=== PATIENT | male | born 1965 | race Caucasian/White ===

== ENCOUNTER 2020-01-02 13:08 | Inpatient (IN) | payer MEDICARE, MEDICAID ==
[~2020-01-02] VITALS: Ht 182.9 cm; Wt 295.4 kg
[2020-01-02 14:33] LABS: BASOPHILS # (AUTO) 0.1 X10'3 (0-0.2); BASOPHILS % (AUTO) 0.4 % (0-1); EOSINOPHILS # (AUTO) 0.1 X10'3 (0-0.9); EOSINOPHILS % (AUTO) 0.7 % (0-6); HEMATOCRIT 35.7 % (42.0-52.0); HEMOGLOBIN 11.7 g/dl (14.0-17.9); LYMPHOCYTES # (AUTO) 1.3 X10'3 (1.1-4.8); LYMPHOCYTES % (AUTO) 8.6 % (21-51); MEAN CORPUSCULAR HGB CONC 32.6 g/dL (33.0-36.5); MEAN CORPUSCULAR VOLUME 85.7 FL (78-98); MONOCYTES # (AUTO) 1.3 X10'3 (0-0.9); MONOCYTES % (AUTO) 8.5 % (2-12); NEUTROPHILS # (AUTO) 12.1 X10'3 (1.8-7.7); NEUTROPHILS % (AUTO) 81.8 % (42-75); PLATELET COUNT 431 X10'3 (140-440); RED BLOOD COUNT 4.17 X10'6 (4.70-6.10); RED CELL DISTRIBUTION WIDTH 17.5 % (11.5-14.5); WHITE BLOOD COUNT 14.8 X10'3 (4.5-11.0)
[2020-01-02 14:52] LABS: ALBUMIN 3.2 G/DL (3.4-5.0); ANION GAP 8 (8-16); BLOOD UREA NITROGEN 102 MG/DL (7-18); BUN/CREATININE RATIO 34.1 (5.4-32.0); CALCIUM 9.2 MG/DL (8.5-10.1); CHLORIDE 95 MMOL/L (99-107); CREATININE 2.99 MG/DL (0.60-1.10); GLUCOSE 150 MG/DL (70-104); MAGNESIUM 2.7 MG/DL (1.5-2.4); POTASSIUM 4.9 MMOL/L (3.5-5.1); SODIUM 133 MMOL/L (135-145); TOTAL CARBON DIOXIDE 29.9 MMOL/L (24-32); TROPONIN I < 0.04 NG/ML (0.0-0.05); eGFR 22 ML/MIN
[2020-01-02] MEDS ORDERED: bumetanide 0.25mg/ml 4ml vial IV SCH (15:05)
[2020-01-02] MEDS ORDERED: DOCU-21 PO (15:42)
[2020-01-02] MEDS ORDERED: ASPI-1265 PO (15:42)
[2020-01-02] MEDS ORDERED: MELA10TA2 PO (15:42)
[2020-01-02] MEDS ORDERED: UBID200C18 PO (15:42)
[2020-01-02] MEDS ORDERED: ASCO-139 PO (15:42)
[2020-01-02] MEDS ORDERED: MULT-1085 PO (15:42)
[2020-01-02] MEDS ORDERED: ALLO300T2 PO (15:44)
[2020-01-02] MEDS ORDERED: ATOR20TA66 PO (15:44)
[2020-01-02] MEDS ORDERED: AMLO10TA PO (15:44)
[2020-01-02] MEDS ORDERED: GABA-532 PO ×2 (15:47)
[2020-01-02] MEDS ORDERED: CLON0.1T PO (15:47)
[2020-01-02] MEDS ORDERED: DULO-31 PO (15:49)
[2020-01-02] MEDS ORDERED: SITA100T11 PO (15:49)
[2020-01-02] MEDS ORDERED: BUME2TAB7 PO (15:49)
[2020-01-02] MEDS ORDERED: PREG150C PO (15:49)
[2020-01-02] MEDS ORDERED: POTA-82 PO (15:50)
[2020-01-02] MEDS ORDERED: CARV3.122 PO (15:50)
[2020-01-02] MEDS ORDERED: SPIR25TA5 PO (15:50)
[2020-01-02] MEDS ORDERED: GLIM4TAB7 PO (15:52)
[2020-01-02] MEDS ORDERED: HYDR100T27 PO (15:52)
[2020-01-02] MEDS ORDERED: LOSA100T57 PO (15:56)
[2020-01-02] MEDS ORDERED: INSU500I SQ (16:07)
[2020-01-02] MEDS ORDERED: INSU100V41 SQ (16:07)
[2020-01-02] MEDS ORDERED: OMEP20TA5 PO (16:08)
[2020-01-02] MEDS ORDERED: CHLO25TA10 PO (16:13)
[2020-01-02] MEDS ORDERED: ISOS120T13 PO (16:14)
[2020-01-02] MEDS ORDERED: TEST75GE10 TOP (16:46)
[2020-01-02] MEDS ORDERED: CYAN10007 IM (16:46)
[2020-01-02 16:47] LABS: TROPONIN I < 0.04 NG/ML (0.0-0.05)
[2020-01-02 17:01] LABS: ABG BASE EXCESS -0.5 mmol/L (-2.0-3.0); ABG HCO3 24.4 mmol/L (22.0-26.0); ABG OXYGEN SATURATION 94.1 % (95-98); ABG PCO2 (T) 40.9 mmHg (35.0-45.0); ABG PH (T) 7.393 (7.350-7.450); ABG PO2 (T) 74.8 mmHg (83-108); ALLEN'S TEST POSITIVE; FCOHb 0.5 % (0.5-1.5); FLOW 14 L/min; FMetHb 0.3 % (0.3-1.12); FO2Hb 93.3 % (94-100); TOTAL HEMOGLOBIN 12.4 G/dl (14.0-17.9)
[2020-01-02] MEDS ORDERED: magnesium 2GM in 50ml NS 50 ML IV PRN (18:45)
[2020-01-02] MEDS ORDERED: morphine 2 MG/ML inj. syringe IV PRN (18:45)
[2020-01-02] MEDS ORDERED: potassium Cl 20 mEq SR tablet PO PRN ×2 (18:45)
[2020-01-02] MEDS ORDERED: Neutra Phos packet PO PRN (18:45)
[2020-01-02] MEDS ORDERED: sodium phosphate inj. 30 MMOL in dextrose 5%-water 250 ML IV PRN (18:45)
[2020-01-02] MEDS ORDERED: acetaminophen 325mg tablet PO PRN ×2 (18:45)
[2020-01-02] MEDS ORDERED: ipratropium/albuterol 3ml nebule NEB PRN (18:45)
[2020-01-02] MEDS ORDERED: ondansetron/PF 4mg/2ml inj IV PRN (18:45)
[2020-01-02] MEDS ORDERED: magnesium Cl slow-release 64mg tablet PO PRN (18:45)
[2020-01-02] MEDS ORDERED: sodium phosphate inj. 15 MMOL in dextrose 5%-water 250 ML IV PRN (18:45)
[2020-01-02] MEDS ORDERED: magnesium 4gm in 100ml NS 100 ML IV PRN (18:45)
[2020-01-02] MEDS ORDERED: potassium CL 10mEq/100ml bag 100 ML IV PRN (18:45)
--- NOTE | 2020-01-02 19:35 | NUR ---
Received report from Chayito DAMIAN and assumed pt care.
[2020-01-02 19:36] LABS: LDL CHOLESTEROL 68 MG/DL (50-100)
[2020-01-02] MEDS: enoxaparin 100mg/ml syringe SUBCUT SCH (19:45)
[2020-01-02] MEDS: DOBUTamine-DoBUTrex 500mg/D5W 250 ML IV SCH (19:45)
[2020-01-02] MEDS ORDERED: docusate sod 100mg capsule PO SCH (20:00)
--- NOTE | 2020-01-02 20:08 | NUR ---
Per November [employer], okay to start dobutamine in piv.
[2020-01-02] MEDS: ascorbic acid 500mg tablet PO SCH (20:47)
[2020-01-02] MEDS: docusate sod 100mg capsule PO SCH (20:48)
[2020-01-02] MEDS: cloNIDine 0.1 mg tablet PO SCH (20:48)
[2020-01-02] MEDS: pregabalin 75mg capsule PO SCH (20:48)
--- NOTE | 2020-01-02 20:58 | NUR ---
HS meds given. Missing cymbalta. Coming from pharmacy.
[2020-01-02] MEDS ORDERED: Melatonin 3mg tablet PO SCH (21:00)
[2020-01-02] MEDS ORDERED: atorvastatin 20mg tablet PO SCH (21:00)
[2020-01-02] MEDS: duloxetine 30mg CAPSULE.DR PO SCH (22:35)
--- NOTE | 2020-01-02 22:35 | NUR ---
Late entry: Patient here from ER in room CICU 2008. I have received report from Keyla DAMIAN and had the opportunity to ask questions and assume patient care. Placed on Bipap upon transferring onto Marcelo bed.
[2020-01-02 23:00] VITALS: BP 67/35
[2020-01-02] MEDS ORDERED: albumin (Human) 5% 250ml 250 ML IV ONE ×3 (23:17→23:25)
--- NOTE | 2020-01-02 23:17 | NUR ---
Pt hypotensive, 500mL bolus of Ns given. No change, J Prince notified. Orders received.
[2020-01-02] MEDS ORDERED: methylPREDNISolone sod succ 125mg/2ml vial IV ONE (23:25)
[2020-01-02] MEDS ORDERED: cefTAZidime inj. 1 GM in normal saline 100ml IV soln 100 ML IV SCH (23:25)
[2020-01-03] VITALS (19 sets, daily range): BP systolic 62–104; BP diastolic 29–64
--- NOTE | 2020-01-03 00:15 | NUR ---
20G PIV placed guided by US in L forearm. Flushes, good blood return. Dobutamine infusing in R FA PIV.
[2020-01-03] MEDS: normal saline 1000ml 1,000 ML IV SCH ×3 (00:21→13:57)
[2020-01-03 00:31] LABS: BASOPHILS # (AUTO) 0.1 X10'3 (0-0.2); BASOPHILS % (AUTO) 0.4 % (0-1); EOSINOPHILS # (AUTO) 0.1 X10'3 (0-0.9); EOSINOPHILS % (AUTO) 0.5 % (0-6); HEMOGLOBIN 10.5 g/dl (14.0-17.9); LYMPHOCYTES # (AUTO) 1.7 X10'3 (1.1-4.8); MEAN CORPUSCULAR HEMOGLOBIN 28.3 PG (27.0-31.0); MEAN CORPUSCULAR HGB CONC 32.9 g/dL (33.0-36.5); MEAN CORPUSCULAR VOLUME 85.9 FL (78-98); MONOCYTES # (AUTO) 1.1 X10'3 (0-0.9); MONOCYTES % (AUTO) 8.2 % (2-12); NEUTROPHILS # (AUTO) 10.8 X10'3 (1.8-7.7); NEUTROPHILS % (AUTO) 78.9 % (42-75); PLATELET COUNT 374 X10'3 (140-440); RED BLOOD COUNT 3.72 X10'6 (4.70-6.10); RED CELL DISTRIBUTION WIDTH 17.4 % (11.5-14.5); WHITE BLOOD COUNT 13.8 X10'3 (4.5-11.0)
[2020-01-03 00:46] LABS: ALANINE AMINOTRANSFERASE 55 U/L (12-78); ALBUMIN 2.9 G/DL (3.4-5.0); ALBUMIN/GLOBULIN RATIO 0.7 (1.1-1.5); ALKALINE PHOSPHATASE 190 IU/L (46-116); ANION GAP 11 (8-16); ASPARTATE AMINO TRANSFERASE 42 U/L (10-37); BILIRUBIN,TOTAL 0.5 MG/DL (0.1-1.0); BLOOD UREA NITROGEN 107 MG/DL (7-18); BUN/CREATININE RATIO 31.4 (5.4-32.0); CALCIUM 8.7 MG/DL (8.5-10.1); CHLORIDE 96 MMOL/L (99-107); CREATININE 3.41 MG/DL (0.60-1.10); GLUCOSE 169 MG/DL (70-104); MAGNESIUM 2.6 MG/DL (1.5-2.4); PHOSPHORUS 6.5 MG/DL (2.3-4.5); POTASSIUM 4.9 MMOL/L (3.5-5.1); SODIUM 133 MMOL/L (135-145); TOTAL CARBON DIOXIDE 25.8 MMOL/L (24-32); TOTAL PROTEIN 7.1 G/DL (6.4-8.2); eGFR 19 ML/MIN
[2020-01-03] MEDS: DOBUTamine-DoBUTrex 500mg/D5W 250 ML IV SCH ×3 (03:08→13:57)
--- NOTE | 2020-01-03 05:25 | NUR ---
Pt unable to tolerate turns, repositioned pressure points to offload pressure. Padded upper extremities and heels with pillows.
--- NOTE | 2020-01-03 06:46 | NUR ---
Problems reprioritized. Patient report given, questions answered & plan of care reviewed with Chloé DAMIAN.
[2020-01-03] MEDS ORDERED: allopurinol 300 MG tablet PO SCH (08:00)
[2020-01-03] MEDS ORDERED: TESTOSTERONE TP SCH (08:00)
[2020-01-03] MEDS ORDERED: methylPREDNISolone sod succ 125mg/2ml vial IV SCH (08:00)
[2020-01-03] MEDS: ascorbic acid 500mg tablet PO SCH (08:00)
[2020-01-03] MEDS ORDERED: UBIDECARENONE 200 MG PO SCH (08:00)
[2020-01-03] MEDS: cloNIDine 0.1 mg tablet PO SCH ×2 (08:00→13:00)
[2020-01-03] MEDS ORDERED: multivitamins, therapeutics tablet PO SCH (08:00)
[2020-01-03] MEDS ORDERED: aspirin 81mg tab.chew PO SCH (08:00)
[2020-01-03] MEDS ORDERED: cyanocobalamin 1,000 mcg/ml inj IM SCH (08:00)
[2020-01-03] MEDS ORDERED: gabapentin 300mg capsule PO SCH (08:00)
[2020-01-03] MEDS ORDERED: pantoprazole 40 MG vial IV SCH (08:00)
[2020-01-03] MEDS: pregabalin 75mg capsule PO SCH (08:01)
[2020-01-03] MEDS: duloxetine 30mg CAPSULE.DR PO SCH (08:01)
[2020-01-03] MEDS: docusate sod 100mg capsule PO SCH (08:01)
[2020-01-03] MEDS: enoxaparin 100mg/ml syringe SUBCUT SCH (08:04)
[2020-01-03] MEDS ORDERED: insulin Lispro (HumaLOG) vial - multi-dose SQ SCH (09:10)
[2020-01-03] MEDS ORDERED: MESSAGE TO PHARMACY PO ONE (09:10)
[2020-01-03] MEDS ORDERED: glucagon, human recombinant 1mg kit SUBCUT PRN (09:10)
[2020-01-03] MEDS ORDERED: dextrose 50%-water 50ml dispensing syringe IV PRN ×2 (09:10)
[2020-01-03] MEDS ORDERED: dextrose ORAL solution 15 GM/59 ML bottle PO PRN ×2 (09:10)
[2020-01-03 10:03] LABS: TOTAL PROTEIN,URINE RANDOM 109.9 MG/DL
[2020-01-03 10:34] LABS: CLARITY,URINE CLEAR (Clear); COLOR,URINE YELLOW (Yellow); GLUCOSE, URINE NEGATIVE (Neg); KETONES,URINE NEGATIVE (Neg); LEUKOCYTE ESTERASE ,URINE SMALL (Neg); NITRITES, URINE NEGATIVE (Neg); OCCULT BLOOD,URINE LARGE (Neg); PROTEIN,URINE 30 mg/dl (Neg); UROBILINOGEN,URINE 0.2 E.U/dL (0.2-1.0)
[2020-01-03 10:38] LABS: UA COLLECTION TYPE NON-SPECIFIED
[2020-01-03 10:42] LABS: RBC,URINE TNTC /HPF (0-2); WBC,URINE 50-100 /HPF (0-4)
[2020-01-03 10:46] LABS: AMORPHOUS URATES 1+
[2020-01-03 10:47] LABS: BACTERIA,URINE NONE SEEN /HPF (Neg); FINE GRANULAR CAST 0-3 /LPF (NEGATIVE); SQUAMOUS EPITHELIAL CELL,UR FEW /LPF (FEW)
[2020-01-03 10:48] LABS: CELLULAR CAST 0-4 /LPF (NEGATIVE)
[2020-01-03 12:03] LABS: SODIUM,URINE RANDOM < 15 MEQ/L
[2020-01-03] MEDS ORDERED: insulin regular, human U-100 3ml vial - multi-dose SQ SCH (14:08)
--- NOTE | 2020-01-03 15:12 | NUR ---
went to check bipap at circa 1130 and pt was in procedure. Addendum: 01/03/20 at 1512 by Noah Teague RT Amended: Links added.
[2020-01-03] MEDS ORDERED: morphine 10mg/0.5ml (conc. morphine) oral syringe PO PRN (15:20)
[2020-01-03] MEDS ORDERED: morphine/NS 5 mg/ml CADD 100 ML IV SCH (15:30)
--- NOTE | 2020-01-03 15:35 | NUR ---
Pt & family requested comfort care process start. Pt given 4 mg ativan and 6 mg morphine for comfort.
--- NOTE | 2020-01-03 15:49 | NUR ---
Pt has been made DNR w/ comfort care. Will continue to monitor. Addendum: 01/03/20 at [address] Amended: Links added.
[2020-01-03] MEDS: morphine 4 MG/ML inj SYRINge IV PRN ×2 (16:30→17:34)
[2020-01-03] MEDS: LORazepam 2 mg/ml vial IV PRN ×3 (16:39→19:07)
[2020-01-03] MEDS: morphine 10mg/ml inj. IV PRN ×3 (16:51→19:07)
--- NOTE | 2020-01-03 20:56 | NUR ---
RN IS TO DOCUMENT YES TO ALL APPLICABLE AREAS Pronouncement of : 1. Time Physician Notified:2099 2. Date of :01/03/2020 3. Time of : 2029 4. DNR/Withdraw life support documented: yes 5. Monitor strip has been placed on chart:yes 6. Assessment process is of one-minute duration and includes following criteria: a) Patient is unresponsive to all stimuli: yes b) Pupils fixed and non-reactive: yes c) Auscultation of precordium reveals absence of heart tones: yes d) Auscultation of lungs reveals absence of breath sounds: yes e) Absence of blood pressure / all vital signs: yes f) QRS complexes are not present on monitor / EKG strip: yes g) Pacer spikes without capture: yes 4. Comments: two sons at bedside. notified of fathers passing.
[2020-01-03] MEDS ORDERED: insulin glargine (Lantus) pen - multi-dose SQ SCH (21:00)
[2020-01-05] MEDS ORDERED: VANCOMYCIN LEVEL IV ONE (22:30)
== END 2020-01-03 23:53 | disposition expired | DRG 314 ==
LOC: ER 13:09 → ED HOLD 18:43 → UNDOADMIN 19:07 → CMPBEDREQ 22:43 → ED HOLD 23:00 → CICU 2S 23:00
PROVIDERS: ADMIT Internal Medicine Critical Care Medicine; ATTEND Internal Medicine Critical Care Medicine
PROC: 5A09357 Assistance with Respiratory Ventilation, Less than 24 Consecutive Hours, Continuous Positive Airway Pressure (ICD-10-PCS; principal; 2020-01-02)
PROC: 05HM33Z Insertion of Infusion Device into Right Internal Jugular Vein, Percutaneous Approach (ICD-10-PCS; 2020-01-02)
PROC: B543ZZA Ultrasonography of Right Jugular Veins, Guidance (ICD-10-PCS; 2020-01-02)
PROC: B54CZZZ Ultrasonography of Left Lower Extremity Veins (ICD-10-PCS; 2020-01-02)
DX: I31.3 Pericardial effusion (noninflammatory) (principal); J96.20 Acute and chronic respiratory failure, unspecified whether with hypoxia or hypercapnia; N17.9 Acute kidney failure, unspecified; I13.0 Hypertensive heart and chronic kidney disease with heart failure and stage 1 through stage 4 chronic kidney disease, or unspecified chronic kidney disease; E66.2 Morbid (severe) obesity with alveolar hypoventilation; Z68.45 Body mass index [BMI] 70 or greater, adult; I42.9 Cardiomyopathy, unspecified; I31.4 Cardiac tamponade; E78.00 Pure hypercholesterolemia, unspecified; E78.5 Hyperlipidemia, unspecified; E11.22 Type 2 diabetes mellitus with diabetic chronic kidney disease; E11.40 Type 2 diabetes mellitus with diabetic neuropathy, unspecified; E86.9 Volume depletion, unspecified; I50.813 Acute on chronic right heart failure; G89.29 Other chronic pain; R57.0 Cardiogenic shock; K21.9 Gastro-esophageal reflux disease without esophagitis; M10.9 Gout, unspecified; I95.9 Hypotension, unspecified; I25.10 Atherosclerotic heart disease of native coronary artery without angina pectoris; J44.9 Chronic obstructive pulmonary disease, unspecified; N18.9 Chronic kidney disease, unspecified; Z51.5 Encounter for palliative care; Z66 Do not resuscitate; Z91.040 Latex allergy status; Z79.899 Other long term (current) drug therapy; Z79.82 Long term (current) use of aspirin; Z74.01 Bed confinement status
CPT/HCPCS: 36415; 36600; 71045; 76937; 80048; 80053; 81001; 82570; 82803; 82948; 83036; 83605; 83721; 83735; 83880; 84100; 84145; 84156; 84300; 84439; 84443; 84484; 84540; 85018; 85025; 87040; 87077; 87081; 87186; 93005; 93308; 93971; 94640; 94660; 94760; 96374; 99285; C9113; G0378; J0713; J1250; J1650; J1815; J2060; J2270; J2930; J3370; J3420; J3490; J7030; P9045